=== PATIENT | female | born 1980 | race Caucasian/White ===

== ENCOUNTER → 2019-05-18 11:26 | Outpatient (BNVA) | payer MEDICARE, MEDICAID, SELFPAY | PROVIDERS: Family Provider Nurse Practitioner; PCP Nurse Practitioner; Visit Provider Nurse Practitioner Women's Health | DX: M54.5 Low back pain (principal); N93.9 Abnormal uterine and vaginal bleeding, unspecified; N94.5 Secondary dysmenorrhea; Z01.419 Encounter for gynecological examination (general) (routine) without abnormal findings; Z30.431 Encounter for routine checking of intrauterine contraceptive device | CPT/HCPCS: 81003 ==

== ENCOUNTER → 2019-08-20 10:43 | Outpatient (BNVA) | payer MEDICARE, MEDICAID, SELFPAY | PROVIDERS: Family Provider Nurse Practitioner; PCP Nurse Practitioner; Visit Provider Nurse Practitioner | DX: F41.8 Other specified anxiety disorders (principal); E11.65 Type 2 diabetes mellitus with hyperglycemia; Z79.4 Long term (current) use of insulin; I10 Essential (primary) hypertension; E87.6 Hypokalemia | CPT/HCPCS: 80053; 80061; 81003; 82044; 82607; 83036; 83721; 84443; 85025 ==

== ENCOUNTER → 2019-08-29 09:06 | Outpatient (BNVA) | payer MEDICARE, MEDICAID, SELFPAY | PROVIDERS: Family Provider Nurse Practitioner; PCP Nurse Practitioner; Visit Provider Nurse Practitioner | DX: I10 Essential (primary) hypertension (principal); E11.65 Type 2 diabetes mellitus with hyperglycemia; Z79.4 Long term (current) use of insulin; E55.9 Vitamin D deficiency, unspecified; E78.1 Pure hyperglyceridemia; F41.8 Other specified anxiety disorders | CPT/HCPCS: 80048 ==

== ENCOUNTER → 2019-09-04 11:42 | Outpatient (BNVA) | payer MEDICARE, MEDICAID, SELFPAY | PROVIDERS: Family Provider Nurse Practitioner; PCP Nurse Practitioner; Visit Provider Nurse Practitioner | DX: E87.6 Hypokalemia (principal) | CPT/HCPCS: 80048 ==

== ENCOUNTER → 2019-09-12 11:33 | Outpatient (BNVA) | payer MEDICARE, MEDICAID, SELFPAY | PROVIDERS: Family Provider Nurse Practitioner; PCP Nurse Practitioner; Visit Provider Nurse Practitioner | DX: E11.65 Type 2 diabetes mellitus with hyperglycemia (principal); Z79.4 Long term (current) use of insulin | CPT/HCPCS: 36416; 82962 ==

== ENCOUNTER → 2019-10-01 12:09 | Outpatient (BNVA) | payer MEDICARE, MEDICAID, SELFPAY | PROVIDERS: Family Provider Nurse Practitioner; PCP Nurse Practitioner; Visit Provider Nurse Practitioner | DX: N76.0 Acute vaginitis (principal); F41.8 Other specified anxiety disorders; Z12.4 Encounter for screening for malignant neoplasm of cervix; Z11.3 Encounter for screening for infections with a predominantly sexual mode of transmission | CPT/HCPCS: 87491; 87591; 87661; 88175 ==

== ENCOUNTER → 2019-11-16 11:51 | Outpatient (BNVA) | payer MEDICARE, MEDICAID, SELFPAY | PROVIDERS: Family Provider Nurse Practitioner; PCP Nurse Practitioner; Visit Provider Nurse Practitioner Women's Health | DX: A59.9 Trichomoniasis, unspecified (principal) | CPT/HCPCS: 87661 ==

== ENCOUNTER → 2019-11-23 10:53 | Outpatient (BNVA) | payer MEDICARE, MEDICAID, SELFPAY | PROVIDERS: Family Provider Nurse Practitioner; PCP Nurse Practitioner; Visit Provider Nurse Practitioner | DX: E78.1 Pure hyperglyceridemia (principal); E11.65 Type 2 diabetes mellitus with hyperglycemia; I10 Essential (primary) hypertension; F41.8 Other specified anxiety disorders; E55.9 Vitamin D deficiency, unspecified; Z79.4 Long term (current) use of insulin | CPT/HCPCS: 80053; 81003; 83036 ==

== ENCOUNTER → 2020-02-08 16:20 | Outpatient (BNVA) | payer MEDICARE, MEDICAID, SELFPAY | PROVIDERS: Family Provider Nurse Practitioner; PCP Nurse Practitioner; Visit Provider Nurse Practitioner Women's Health | DX: N84.1 Polyp of cervix uteri (principal) | CPT/HCPCS: 88305 ==

== ENCOUNTER → 2020-02-12 08:29 | Outpatient (BNVA) | payer MEDICARE, MEDICAID, SELFPAY | PROVIDERS: Family Provider Nurse Practitioner; PCP Nurse Practitioner; Visit Provider Nurse Practitioner | DX: E11.65 Type 2 diabetes mellitus with hyperglycemia (principal); Z79.4 Long term (current) use of insulin | CPT/HCPCS: 80053; 80061; 83036 ==

== ENCOUNTER → 2020-02-13 11:35 | Outpatient (BNVA) | payer MEDICARE, MEDICAID, SELFPAY | PROVIDERS: Family Provider Nurse Practitioner; PCP Nurse Practitioner; Visit Provider Nurse Practitioner | DX: E11.65 Type 2 diabetes mellitus with hyperglycemia (principal); Z79.4 Long term (current) use of insulin; F41.8 Other specified anxiety disorders; I10 Essential (primary) hypertension; E78.1 Pure hyperglyceridemia; E55.9 Vitamin D deficiency, unspecified; Z28.21 Immunization not carried out because of patient refusal; J30.1 Allergic rhinitis due to pollen; L40.9 Psoriasis, unspecified; Z23 Encounter for immunization | CPT/HCPCS: 36416; 82962 ==

== ENCOUNTER → 2020-03-20 13:03 | Outpatient (BNVA) | payer MEDICARE, MEDICAID, SELFPAY | PROVIDERS: Family Provider Nurse Practitioner; PCP Nurse Practitioner; Visit Provider Obstetrics & Gynecology | DX: Z01.812 Encounter for preprocedural laboratory examination (principal); N84.1 Polyp of cervix uteri | CPT/HCPCS: 81025 ==

== ENCOUNTER → 2020-04-24 15:38 | Outpatient (BNVA) | payer MEDICARE, MEDICAID, SELFPAY | PROVIDERS: PCP Nurse Practitioner; Visit Provider Obstetrics & Gynecology | DX: Z01.812 Encounter for preprocedural laboratory examination (principal); N84.1 Polyp of cervix uteri | CPT/HCPCS: 87635 ==

== ENCOUNTER 2020-04-30 07:00 | Day surgery (SDC) | payer MEDICARE, MEDICAID, SELFPAY ==
[2020-04-28 13:24] VITALS: BMI 49.6
--- NOTE | 2020-04-28 14:20 | ANES.PREANE2 ---
Pre-Anesthetic Assessment Pre-Anesthetic Assessment: Height/Weight: Height 1.65 m Weight 135.171 kg Proposed Procedure: Operation Date: 04/30/20 08:30 Proposed Procedures p Hysteroscopy [id number] N84.1(Not Applicable) - Jona Carver MD s Dilation And Curettage (D&C) and polypectomy(Not Applicable) - Jona Carver MD Was Beta Eh taken within 24 hours: Yes Social: Social History: No alcohol and No tobacco Exam: Pre-Anes Outpt Exam: alert, oriented x 3, clear to auscultation bilaterally and regular rate & rhythm Airway: Submandibular: WNL Cervical ROM: WNL MP: 2 Pulmonary: Pulmonary: None reported CV/HEM: CV/HEM: HTN Metabolic: Metabolic: DM and Morbid obesity Neuropsych: Neuropsych: Anxiety and Depression Anesthetic Plan: ASA status: 3 Anesthesia: General Risk of > 500 ml blood loss (7ml/kg in children): No PFSH Anesthesia PFSH: Medical History Abnormal uterine bleeding Asthma Depression with anxiety Diabetes mellitus with hyperglycemia, with long-term current use of insulin H/O hematuria Hypertension Hypertriglyceridemia Mental disability without special needs Psoriasis Seasonal allergic rhinitis due to pollen Surgical History No history of previous surgery Family History Mother Ovarian cancer Family/Other Lung cancer Paternal uncle Breast cancer Paternal aunt Grandmother Heart disease Paternal Diabetes Paternal Denies family history of Colon cancer Hyperlipidemia Family history of thyroid problem Hypertension Uterine cancer Stroke Social History Household members: caregiver Current occupational status: disabled Current gender identity: Female Additional social history: - Tobacco use: Denies Alcohol use: Denies Drug use: Denies Data Anesthesia Cardiac Studies: No Data to Display
[2020-04-28 14:30] LABS: Basophils # 0.1 10^3/uL (0.0-0.1); Basophils % 0.5 %; Eosinophils # 0.1 10^3/uL (0.0-0.8); Eosinophils % 0.6 %; Hematocrit 51.6 % (37.0-47.0); Hemoglobin 17.2 g/dL (11.5-15.3); Lymphocytes % 21.2 %; Mean Corpuscular HGB Conc 33.3 g/dL (30.0-36.0); Mean Corpuscular Hemoglobin 28.9 pg (28.0-34.0); Mean Corpuscular Volume 86.6 fL (81-99); Mean Platelet Volume 10.7 fL (7.4-10.4); Monocytes # 1.3 10^3/uL (0.2-0.9); Monocytes % 6.9 %; Neutrophils # 13.21 10^3/uL (1.8-7.7); Neutrophils % 70.2 %; Nucleated Red Blood Cells % 0 %; Platelet Count 491 10^3/cmm (130-400); Red Blood Count 5.96 10^6/uL (4.1-5.3); Red Cell Distribution Width 12.5 % (12.1-15.1); White Blood Count 18.8 10^3/uL (4.0-10.0)
[2020-04-28 14:36] LABS: OR HCG Qualitative Urine Negative (Negative)
[2020-04-28 15:14] LABS: Anion Gap 19.7 (5-19); Blood Urea Nitrogen 18 mg/dL (6-20); Carbon Dioxide 28 mmol/L (22-29); Chloride 91 mmol/L (98-107); Glomerular Filtration Rate 70.1 mL/min (90-130); Glucose 210 mg/dL (65-115); Osmolality Calculated 288 mOsm/kg (285-295); Potassium 3.7 mmol/L (3.5-5.1); Sodium 135 mmol/L (136-145)
[2020-04-28 15:31] LABS: Urine Appearance Hazy (CLEAR); Urine Color Yellow (Yellow); pH Urine 5 (5-7)
[2020-04-28 15:32] LABS: Add Urine Culture? No; Add Urine Microscopic? YES; Bacteria Urine 1+ /hpf; Bilirubin Urine Neg (Negative); Blood Urine Neg (Negative); Glucose Urine UA 4+ (Normal); Ketones Urine Negative (Negative); Leukocyte Esterase Urine Negative (Negative); Nitrate Urine Negative (Negative); Protein Urine Neg (Negative); Urobilinogen Urine Norm (Negative); WBC Urine 0-4 /hpf (0-5)
[2020-04-30] VITALS (8 sets, daily range): BP systolic 101–147; BP diastolic 65–91; PULSE 72–92; RESP 16–22; TEMP 36.2–37; O2SAT 92–95
[2020-04-30 07:15] LABS: OR HCG Qualitative Urine Negative (Negative)
--- NOTE | 2020-04-30 07:53 | P.ANESUD_ITS ---
Pre-Anesthetic Update Pre-Anesthetic Assessment: Date of Surgery/Procedure: 04/30/20 Preop Sarita gnosis: Endocervical polyp Proposed Procedure: Operation Date: 04/30/20 08:30 Proposed Procedures p Hysteroscopy [id number] N84.1(Not Applicable) - Jona Carver MD s Dilation And Curettage (D&C) and polypectomy(Not Applicable) - Jona Carver MD Any changes to Pre-Anesthetic Assessment?: No Last Intake: 00:00 Labs Last 48hrs: Laboratory Results - last 48 hr 04/28/20 04/28/20 04/28/20 13:45 13:45 13:45 WBC 18.8 H RBC 5.96 H Hgb 17.2 H Hct 51.6 H MCV 86.6 MCH 28.9 MCHC 33.3 RDW 12.5 Plt Count 491 H MPV 10.7 H Neut % (Auto) 70.2 Lymph % (Auto) 21.2 [place] % (Auto) 6.9 Eos % (Auto) 0.6 Baso % (Auto) 0.5 Neut # (Auto) 13.21 H Lymph # (Auto) 4.0 [place] # (Auto) 1.3 H Eos # (Auto) 0.1 Baso # (Auto) 0.1 Nucleated RBC % (a uto) 0 Nucleated RBCs # 0.0 Sodium 135 L Potassium 3.7 Chloride 91 L Carbon Dioxide 28 Anion Gap 19.7 H BUN 18 Creatinine 0.9 GFR Calculation 70.1 L Glucose 210 H Calculated Osmolal ity 288 Calcium 12.9 H Urine Color Urine Appearance Urine pH Ur Specific Gravit y Urine Protein Urine Glucose (UA) Urine Ketones Urine Blood Urine Nitrate Urine Bilirubin Urine Urobilinogen Ur Leukocyte Angeli ase Urine RBC Urine WBC Ur Squamous Epith Cells Amorphous Sediment Urine Bacteria Urine HCG, Qual Negative Blood Type Rho(D) Type Antibody Screen 04/28/20 04/28/20 04/30/20 13:45 13:45 07:06 WBC RBC Hgb Hct MCV MCH MCHC RDW Plt Count MPV Neut % (Auto) Lymph % (Auto) [place] % (Auto) Eos % (Auto) Baso % (Auto) Neut # (Auto) Lymph # (Auto) [place] # (Auto) Eos # (Auto) Baso # (Auto) Nucleated RBC % (a uto) Nucleated RBCs # Sodium Potassium Chloride Carbon Dioxide Anion Gap BUN Creatinine GFR Calculation Glucose Calculated Osmolal ity Calcium Urine Color Yellow Urine Appearance Hazy A Urine pH 5 Ur Specific Gravit y 1.010 Urine Protein Neg Urine Glucose (UA) 4+ H Urine Ketones Negative Urine Blood Neg Urine Nitrate Negative Urine Bilirubin Neg Urine Urobilinogen Norm Ur Leukocyte Angeli ase Negative Urine RBC None Urine WBC 0-4 H Ur Squamous Epith Cells 5-10 H Amorphous Sediment Not Reportable Urine Bacteria 1+ H Urine HCG, Qual Negative Blood Type O Positive Rho(D) Type Positive Antibody Screen Negative Exam: Pre-Anes Outpt Exam: alert, oriented x 3, clear to auscultation bilaterally and regular rate & rhythm Cardiac Studies: No Data to Display
[2020-04-30] MEDS: sodium chloride 0.9% 500 ML IV (07:54)
[2020-04-30 07:59] LABS: Glucose Point of Care 216 mg/dL (70-110)
[2020-04-30] MEDS: vancomycin 1,000 MG in sodium chloride 0.9% 250 ML 250 MG IV (08:00)
--- NOTE | 2020-04-30 08:23 | W.PM.OPSUD ---
Surgery/Procedure H&P Update DATE OF PROCEDURE: April 30, 2020 DATE H&P PERFORMED: 04/28/20 H&P UPDATE INFORMATION: I have reviewed H&P completed within last 30 days, I have examined patient prior to procedure and No changes to prior documentation PREOP DIAGNOSIS: Endocervical polyp PLANNED PROCEDURE: Operation Date: 04/30/20 08:30 Proposed Procedures p Hysteroscopy [id number] N84.1(Not Applicable) - Jona Carver MD s Dilation And Curettage (D&C) and polypectomy(Not Applicable) - Jona Carver MD
[2020-04-30] MEDS: sodium chloride 0.9% 1,000 ML 30 ML IV (08:24)
--- NOTE | 2020-04-30 09:09 | P.OP_ITS ---
Operative Report Date of procedure: April 30, 2020 Pre-op Diagnosis: Endocervical polyp, abnormal uterine bleeding Post-op diagnosis: same Procedure Done: Hysteroscopic polypectomy via MyoSure Specimens removed/disposition: Endometrial curettings and polyp Surgeon: Jona Carver MD Estimated blood loss (mL): 5 IV fluids (mL): 300 Urine output (mL): 400 Complications: None Condition: stable Disposition: PACU Brief History: 39-year-old female with endometrial polyp and abnormal uterine bleeding Procedure: After informed consent, the risks included but were not limited to bleeding, infection, injury to internal organs. The patient was counseled on a possible laparotomy and on the potential need for hysterectomy. The patient expressed understanding of the risks involved, all questions were answered, and the patient consented to the procedure. The patient was taken to the operating room where general anesthesia was administered. She was placed in the dorsal lithotomy position and prepped and draped in sterile fashion. A time out procedure was performed. The patient was examined under anesthesia and found to have a normal uterus with normal adnexa. A sterile weight speculum was placed in the vagina. The uterus was then gently sounded to 9 cm, and the cervix was dilated. The 0 degrees MyoSure hysteroscope was advanced gently to the uterine fundus while visualizing the monitor. Survey of the uterine cavity showed: Anterior wall polyps, and a Mirena IUD in cavity, the fundus shows normal proliferative endometrium; left ostium was visualized, and lateral wall with proliferative endometrium; right ostium visualized, and lateral wall with proliferative endom etrium; anterior and posterior solares are with proliferative endometrium; endocervical canal is normal. The MyoSure device was advanced and under direct visualization the polyp was morcellated without complication. At the end of morcellation the fluid deficit was 525 mL and was estimated at approximately 200 mL were on the floor. There was minimal bleeding noted and the tenaculum removed with goad hemostasis noted. The patient tolerated the procedure well. The patient was taken to the recovery area in stable condition.
[2020-04-30 09:28] LABS: Glucose Point of Care 220 mg/dL (70-110)
--- NOTE | 2020-04-30 12:20 | ANE.PACU2 ---
Inpatient post-anesthesia follow up: Airway intact: Yes Vital signs: Temperature 98.6 F Pulse Rate 72 Respiratory Rate 18 Blood Pressure 147/84 Pulse Oximetry 94 Oxygen Delivery Me thod Room Air Oxygen Flow Rate 8 Fraction of Inspir ed Oxygen Hydration adequate: Yes Nausea and vomiting: No Pain level: 2 Mental status: Baseline
== END 2020-04-30 10:23 | disposition home or self-care (01) ==
PROVIDERS: Anesthesiology; PCP Nurse Practitioner; Visit Provider Obstetrics & Gynecology
PROC: (CPT 58120; 2020-04-30 08:30)
PROC: 0UDB8ZZ Extraction of Endometrium, Via Natural or Artificial Opening Endoscopic (ICD-10-PCS; CPT 58558; 2020-04-30 08:30)
DX: N93.9 Abnormal uterine and vaginal bleeding, unspecified (principal); N84.0 Polyp of corpus uteri; I10 Essential (primary) hypertension; E11.9 Type 2 diabetes mellitus without complications; E66.01 Morbid (severe) obesity due to excess calories; Z68.42 Body mass index [BMI] 45.0-49.9, adult; F41.9 Anxiety disorder, unspecified; F32.9 Major depressive disorder, single episode, unspecified; Z79.82 Long term (current) use of aspirin; E88.81 Metabolic syndrome and other insulin resistance
CPT/HCPCS: 58558; 12345; 36415; 36416; 80048; 81001; 81025; 82962; 84703; 85025; 86850; 86900; 88305; 96365; J0330; J1100; J2370; J2405; J2704; J3010; J3370; J7030; J7040; J7050

== ENCOUNTER → 2020-05-06 08:56 | Outpatient (BNVA) | payer MEDICARE, MEDICAID, SELFPAY | PROVIDERS: PCP Nurse Practitioner; Visit Provider Nurse Practitioner | DX: E11.65 Type 2 diabetes mellitus with hyperglycemia (principal); E55.9 Vitamin D deficiency, unspecified; I10 Essential (primary) hypertension; Z79.4 Long term (current) use of insulin | CPT/HCPCS: 80053; 80061; 82306; 83036 ==

== ENCOUNTER → 2020-08-04 10:28 | Outpatient (BNVA) | payer MEDICARE, MEDICAID, SELFPAY | PROVIDERS: PCP Nurse Practitioner; Visit Provider Nurse Practitioner | DX: E11.65 Type 2 diabetes mellitus with hyperglycemia (principal); Z79.4 Long term (current) use of insulin; E55.9 Vitamin D deficiency, unspecified; I10 Essential (primary) hypertension | CPT/HCPCS: 80053; 80061; 81000; 82043; 82306; 83036 ==

== ENCOUNTER → 2020-10-01 13:40 | Outpatient (BNVA) | payer MEDICARE, MEDICAID, SELFPAY | PROVIDERS: PCP Nurse Practitioner; Visit Provider Obstetrics & Gynecology | DX: T83.32XA Displacement of intrauterine contraceptive device, initial encounter (principal); Y65.8 Other specified misadventures during surgical and medical care | CPT/HCPCS: 76830 ==

== ENCOUNTER → 2020-10-30 10:40 | Outpatient (BNVA) | payer MEDICARE, MEDICAID, SELFPAY | PROVIDERS: PCP Nurse Practitioner; Visit Provider Nurse Practitioner | DX: E11.65 Type 2 diabetes mellitus with hyperglycemia (principal); Z79.4 Long term (current) use of insulin | CPT/HCPCS: 80053; 80061; 83036; 83721 ==

== ENCOUNTER → 2020-11-12 11:31 | Outpatient (BNVA) | payer MEDICARE, MEDICAID, SELFPAY | PROVIDERS: PCP Nurse Practitioner; Visit Provider Nurse Practitioner | DX: E11.65 Type 2 diabetes mellitus with hyperglycemia (principal); F41.8 Other specified anxiety disorders; I10 Essential (primary) hypertension; E78.1 Pure hyperglyceridemia; J30.1 Allergic rhinitis due to pollen; E55.9 Vitamin D deficiency, unspecified; K21.9 Gastro-esophageal reflux disease without esophagitis; Z79.4 Long term (current) use of insulin | CPT/HCPCS: 81000 ==

== ENCOUNTER → 2021-02-02 10:36 | Outpatient (BNVA) | payer MEDICARE, MEDICAID, SELFPAY | PROVIDERS: PCP Nurse Practitioner; Visit Provider Nurse Practitioner | DX: E11.65 Type 2 diabetes mellitus with hyperglycemia (principal); E55.9 Vitamin D deficiency, unspecified; Z79.4 Long term (current) use of insulin | CPT/HCPCS: 80053; 80061; 82306; 83036 ==

== ENCOUNTER → 2021-04-01 15:05 | Outpatient (BNVA) | payer MEDICARE, MEDICAID, SELFPAY | PROVIDERS: PCP Nurse Practitioner; Visit Provider Nurse Practitioner Family | DX: Z20.822 Contact with and (suspected) exposure to COVID-19 (principal) | CPT/HCPCS: 87635 ==

== ENCOUNTER → 2021-04-30 09:24 | Outpatient (BNVA) | payer MEDICARE, MEDICAID, SELFPAY | PROVIDERS: PCP Nurse Practitioner; Visit Provider Nurse Practitioner | DX: E11.65 Type 2 diabetes mellitus with hyperglycemia (principal); E55.9 Vitamin D deficiency, unspecified; Z79.4 Long term (current) use of insulin | CPT/HCPCS: 80053; 80061; 82306; 83036; 83721 ==

== ENCOUNTER → 2021-06-04 10:15 | Outpatient (BNVA) | payer MEDICARE, MEDICAID, SELFPAY | PROVIDERS: PCP Nurse Practitioner; Visit Provider Nurse Practitioner Family | DX: R11.10 Vomiting, unspecified (principal); K21.9 Gastro-esophageal reflux disease without esophagitis; R11.2 Nausea with vomiting, unspecified; R10.10 Upper abdominal pain, unspecified | CPT/HCPCS: 80053; 85025 ==

== ENCOUNTER 2021-06-09 08:46 | Outpatient (CLI) | payer MEDICARE, MEDICAID, SELFPAY ==
--- NOTE | 2021-06-09 09:19 | XRR_ITS ---
PROCEDURE INFORMATION: Exam: XR Abdomen Exam date and time: 06/09/2021 9:19 AM Age: 41 years old Clinical indication: Constipation; Abdominal pain; Generalized; Additional info: K59.01 - slow transit constipation TECHNIQUE: Imaging protocol: XR of the abdomen. Views: Frontal supine view of the abdomen. 1 View. COMPARISON: ES surgery / GI images 04/30/2020 8:49 AM FINDINGS: Gastrointestinal tract: Severe colonic stool burden. No bowel dilation. Bones/joints: Unremarkable. XR/XR abdomen 1V* [id number] IMPRESSION: Severe colonic stool burden.
== END 2021-06-09 08:47 | disposition home or self-care (01) ==
PROVIDERS: PCP Nurse Practitioner; Visit Provider Nurse Practitioner
DX: K59.01 Slow transit constipation (principal)
CPT/HCPCS: 74018

== ENCOUNTER → 2021-06-12 11:20 | Outpatient (BNVA) | payer MEDICARE, MEDICAID, SELFPAY | PROVIDERS: PCP Nurse Practitioner; Visit Provider Nurse Practitioner | DX: K59.01 Slow transit constipation (principal); R10.10 Upper abdominal pain, unspecified | CPT/HCPCS: 80053; 81000; 85025 ==

== ENCOUNTER 2021-07-21 10:13 | Outpatient (CLI) | payer MEDICARE, MEDICAID, SELFPAY ==
--- NOTE | 2021-07-21 11:00 | US_ITS ---
WS: [id number] RIGHT UPPER QUADRANT ULTRASOUND HISTORY: R11.2 - Nausea with vomiting, unspecified COMPARISON: None available. Liver: 20.9 cm in length. Markedly enlarged liver with marked attenuation. Coarse echotexture and nod ular surface. Mass or bile duct dilatation would be difficult to exclude. Portal Vein: Normal hepatopetal flow. Gallbladder: Normally distended gallbladder with no stones or wall thickening. CBD: 0.5 cm Pancreas: Not visualized. Right kidney: 12.4 cm in length. Normal size and echogenicity but difficult to visualize in its entir ety. No hydronephrosis or mass. Aorta and IVC: Very limited evaluation of the aorta and IVC. No ascites. US/US gall bladder [id number] IMPRESSION: 1. Technically very limited evaluation of the RIGHT upper quadrant due to body habitus. 2. Marked hepatomegaly and hepatic steatosis. 3. Negative gallbladder.
== END 2021-07-21 10:14 | disposition home or self-care (01) ==
PROVIDERS: PCP Nurse Practitioner; Visit Provider Nurse Practitioner Family
DX: R10.10 Upper abdominal pain, unspecified (principal); R11.2 Nausea with vomiting, unspecified
CPT/HCPCS: 76705

== ENCOUNTER → 2021-07-28 08:33 | Outpatient (BNVA) | payer MEDICARE, MEDICAID, SELFPAY | PROVIDERS: PCP Nurse Practitioner; Visit Provider Nurse Practitioner | DX: I10 Essential (primary) hypertension (principal) | CPT/HCPCS: 80053; 80061; 82306; 83036; 83721; 85025 ==

== ENCOUNTER → 2021-07-29 10:25 | Outpatient (BNVA) | payer MEDICARE, MEDICAID, SELFPAY | PROVIDERS: PCP Nurse Practitioner; Visit Provider Nurse Practitioner | DX: E11.65 Type 2 diabetes mellitus with hyperglycemia (principal); E55.9 Vitamin D deficiency, unspecified; Z79.4 Long term (current) use of insulin; F41.8 Other specified anxiety disorders; E78.1 Pure hyperglyceridemia; I10 Essential (primary) hypertension; J30.1 Allergic rhinitis due to pollen; K59.01 Slow transit constipation; B37.3 Candidiasis of vulva and vagina | CPT/HCPCS: 81000 ==

== ENCOUNTER → 2021-10-22 12:52 | Outpatient (BNVA) | payer MEDICARE, MEDICAID, SELFPAY | PROVIDERS: PCP Nurse Practitioner; Visit Provider Nurse Practitioner | DX: E11.65 Type 2 diabetes mellitus with hyperglycemia (principal); Z79.4 Long term (current) use of insulin; E55.9 Vitamin D deficiency, unspecified | CPT/HCPCS: 80053; 80061; 82306; 83036; 85025 ==

== ENCOUNTER → 2021-10-30 09:13 | Outpatient (BNVA) | payer MEDICARE, MEDICAID, SELFPAY | PROVIDERS: PCP Nurse Practitioner; Visit Provider Nurse Practitioner | DX: F41.8 Other specified anxiety disorders (principal); J30.1 Allergic rhinitis due to pollen; I10 Essential (primary) hypertension; E11.65 Type 2 diabetes mellitus with hyperglycemia; Z79.4 Long term (current) use of insulin; B37.3 Candidiasis of vulva and vagina; E78.1 Pure hyperglyceridemia; K59.01 Slow transit constipation; N89.8 Other specified noninflammatory disorders of vagina | CPT/HCPCS: 87070; 87106; 87205 ==